=== PATIENT | female | born 1960 | race Caucasian/White ===

== ENCOUNTER 2018-10-05 05:18 | Inpatient (IN) | payer OTHER ==
[~2018-10-05] VITALS: Ht 182.9 cm; Wt 76.6 kg
[2018-10-05] VITALS (25 sets, daily range): BP systolic 94–129; BP diastolic 50–78; PULSE 63–81; RESP 16–24
[2018-10-05] MEDS ORDERED: oxyCODONE (CR) 10 MG TAB [oxyCONTIN] PO SCH (06:00)
[2018-10-05] MEDS ORDERED: TRANEXAMIC ACID 1GM/100ML(PMX) 100 ML PRE-OP X1 IVPB SCH (06:00)
[2018-10-05] MEDS ORDERED: TRANEXAMIC ACID 1GM/100ML(PMX) 100 ML INTRA-OP X1 IVPB SCH (06:00)
[2018-10-05] MEDS ORDERED: LACTATED RINGER'S 1,000 ML IV SCH (06:00)
[2018-10-05] MEDS ORDERED: ONDANSETRON 4 MG INJ IV SCH (06:00)
[2018-10-05] MEDS ORDERED: LANSOPRAZOLE 30 MG CAP PO SCH (06:00)
[2018-10-05] MEDS ORDERED: CEFAZOLIN 1 GM/50 ML (PMX) 50 ML IVPB SCH (06:00)
[2018-10-05] MEDS ORDERED: DEXAMETHASONE 4 MG/ML 1 ML INJ IV SCH (06:00)
[2018-10-05] MEDS ORDERED: ACETAMINOPHEN 500 MG TAB PO SCH (06:00)
[2018-10-05] MEDS ORDERED: ACETAMINOPHEN 1000MG/100ML IV 100 ML IVPB SCH (06:30)
--- NOTE | 2018-10-05 06:35 | HPN ---
Date/Time of Note Date/Time of Note DATE: 10/05/18 TIME: 06:35 Interval H&P Admission Note Pt. seen H&P reviewed: No system changes CORDELL KENYON MD October 05, 2018 06:35
[2018-10-05] MEDS ORDERED: BACITRACIN 50000 UNITS INJ ONE (06:57)
[2018-10-05] MEDS ORDERED: HIP PAIN COCKTAIL VANCO INJ SCH ×7 (07:00)
[2018-10-05] MEDS ORDERED: SULI150T PO (07:06)
[2018-10-05] MEDS ORDERED: POLYMYXIN B 500000 UNIT INJ ONE (07:11)
--- NOTE | 2018-10-05 07:19 | PREAC ---
Date/Time of Note Date/Time of Note DATE: 10/05/18 TIME: 07:17 Anesthesia Eval and Record Evaluation Time Pre-Procedure Interview DATE: 10/05/18 TIME: 07:17 Age 58 Sex female NPO: 8 hrs Preoperative diagnosis RIGHT HIP PRIMARY OSTEOARTHRITIS Planned procedure RIGHT ANTERIOR TOTAL HIP ARTHROPLASTY Past Medical History Past Medical History: Includes Recreational drugs: Marijuana Surgery & Anesthesia Issues No known issue Meds Anticoagulation: No Beta Yosi within 24 hr: No Reason Beta Yosi not given: Pt. not on B-Yosi Reported Medications Sulindac* (Sulindac*) 150 Mg Tablet, 75 MG PO BID, TAB 10/05/18 Current Medications Lactated Ringer's 1,000 ml @ 125 mls/hr Q8H IV Last administered on 10/05/18at 06:30; Admin Dose 125 MLS/HR; Start 10/05/18 at 06:00; Stop 10/05/18 at 13:59 Cefazolin Sodium 50 ml @ 100 mls/hr PRE-OP IVPB ; Start 10/05/18 at 06:00; Stop 10/05/18 at 19:00 Tranexamic Acid 100 ml @ 220 mls/hr PRE-OP IVPB ; Start 10/05/18 at 06:00; Stop 10/05/18 at 19:00 Tranexamic Acid 100 ml @ 200 mls/hr INTRA-OP IVPB ; Start 10/05/18 at 06:00; Stop 10/05/18 at 19:00 Oxycodone HCl (Oxycontin) 10 mg PRE-OP PO Last administered on 10/05/18at 06:29; Admin Dose 10 MG; Start 10/05/18 at 06:00; Stop 10/05/18 at 19:00 Acetaminophen (Tylenol Tab) 1,000 mg PRE-OP PO ; Start 10/05/18 at 06:00; Stop 10/05/18 at 19:00 Lansoprazole (Prevacid) 30 mg PRE-OP PO Last administered on 10/05/18at 06:28; Admin Dose 30 MG; Start 10/05/18 at 06:00; Stop 10/05/18 at 19:00 Ondansetron HCl (Zofran Inj) 4 mg PRE-OP IV Last administered on 10/05/18at 06:29; Admin Dose 4 MG; Start 10/05/18 at 06:00; Stop 10/05/18 at 19:00 Dexamethasone (Decadron) 8 mg PRE-OP IV ; Start 10/05/18 at 06:00; Stop 10/05/18 at 19:00 Ropivacaine/ Morphine Sulfate/ Clonidine HCl/ Epinephrine/ Ketorolac Tromethamine/ Vancomycin HCl/ Sodium Chloride INTRA-OP INJ ; Start 10/05/18 at 07:00 Acetaminophen 100 ml @ 400 mls/hr PRE-OP IVPB ; Start 10/05/18 at 06:30; Stop 10/05/18 at 12:00 Meds reviewed: Yes Allergies Coded Allergies: No Known Allergy (Unverified , 10/05/18) Allergies Reviewed: Yes Labs/Studies Labs Reviewed: Reviewed by anesthesiologist test: N/A Studies: ECG (NL), CXR (NAPD) Pre-procedure Exam Airway: Adequate mouth opening, Adequate thyromental dist Mallampati: Mallampati II Teeth: Normal Lung: Normal Heart: Normal ASA Physical Status ASA physical status: 2 Emergency: None Planned Anesthetic General/MAC: ETT Neuraxial: Spinal Planned Pain Management Parenteral pain med Pre-operative Attestations Prior to commencing anesthesia and surgery, the patient was re-evaluated, there was verification of: *The patient's identity *The results of appropriate recent lab work and preoperative vital signs *The above evaluation not changing prior to induction *Anesthetic plan, risk benefits, alternative and complications discussed with patient/family; questions answered; patient/family understands, accepts and wishes to proceed. Jaquan Cook M.D. October 05, 2018 07:19
[2018-10-05] MEDS ORDERED: MIDAZOLAM 1 MG/ML 2 ML INJ ONE (07:23)
[2018-10-05] MEDS ORDERED: DEXAMETHASONE 4 MG/ML 5 ML INJ ONE (07:23)
[2018-10-05] MEDS ORDERED: ONDANSETRON 4 MG INJ ONE (07:23)
[2018-10-05] MEDS ORDERED: CEFAZOLIN 1 GM INJ ONE (07:23)
[2018-10-05] MEDS ORDERED: PROPOFOL 20 ML ONE (07:23)
[2018-10-05] MEDS ORDERED: NEOSTIGMINE 3 MG/3 ML SYRINGE ONE (07:23)
[2018-10-05] MEDS ORDERED: ROCURONIUM 50 MG INJ ONE (07:23)
[2018-10-05] MEDS ORDERED: GLYCOPYRROLATE 0.4 MG INJ ONE (07:23)
[2018-10-05] MEDS ORDERED: FENTAnyl 50 MCG/ML VIAL ONE (07:23)
[2018-10-05] MEDS ORDERED: morphine SULFATE/PF (10 MG/10 ML) INJ ONE (07:24)
[2018-10-05] MEDS ORDERED: HYDROmorphONE 0.5 MG/0.5 ML SYG IV PRN ×2 (07:30)
[2018-10-05] MEDS ORDERED: hydrALAzine 20 MG INJ IV PRN (07:30)
[2018-10-05] MEDS ORDERED: DIPHENHYDRAMINE 50 MG INJ IV PRN ×2 (07:30)
[2018-10-05] MEDS ORDERED: FENTAnyl 50 MCG/ML VIAL IV PRN ×3 (07:30)
[2018-10-05] MEDS ORDERED: KETOROLAC 30 MG INJ IV PRN (07:30)
[2018-10-05] MEDS ORDERED: MIDAZOLAM 1 MG/ML 2 ML INJ IV PRN (07:30)
[2018-10-05] MEDS ORDERED: NALOXONE (0.4 MG/ML) INJ IV PRN ×2 (07:30→11:00)
[2018-10-05] MEDS ORDERED: LABETALOL HCL 20MG INJ IV PRN (07:30)
[2018-10-05] MEDS ORDERED: HYDROmorphONE 1 MG/5 ML IV SYRINGE IV PRN ×3 (07:30)
[2018-10-05] MEDS ORDERED: IPRATROPIUM (NEB) 0.5 MG/2.5 ML AMP HHN PRN (07:30)
[2018-10-05] MEDS ORDERED: ONDANSETRON 4 MG INJ IV PRN ×2 (07:30)
[2018-10-05] MEDS ORDERED: ALBUTEROL 0.083% (NEB) 2.5 MG/3 ML AMP HHN PRN (07:30)
[2018-10-05] MEDS ORDERED: ZOLPIDEM 5 MG TAB PO PRN (07:30)
[2018-10-05] MEDS ORDERED: TRIMETHOBENZAMIDE 100 MG/ML VIAL IM PRN ×2 (07:30)
[2018-10-05] MEDS ORDERED: OXYCODONE/ACETAMINOPHEN (5/325) TAB PO PRN ×2 (07:30)
[2018-10-05] MEDS ORDERED: EPHEDrine 25 MG/5 ML SYG IV PRN (07:30)
[2018-10-05] MEDS ORDERED: NALBUPHINE HCL (10 MG/1 ML) INJ IV PRN (07:30)
[2018-10-05] MEDS ORDERED: MEPERIDINE 25 MG INJ IV PRN (07:30)
[2018-10-05] MEDS ORDERED: POLYMYXIN B 500000 UNIT INJ IRR ONE (08:27)
--- NOTE | 2018-10-05 10:33 | SIPON ---
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
--- NOTE | 2018-10-05 10:42 | OPR ---
Date/Time of Note Date/Time of Note DATE: 10/05/18 TIME: 10:36 Operative Report Free Text/Dictation DATE OF OPERATION: October 05, 2018 PREOPERATIVE DIAGNOSIS: Right hip osteoarthritis. POSTOPERATIVE DIAGNOSIS: Right hip osteoarthritis. PROCEDURES PERFORMED: 1. Right total hip arthroplasty. CPT code 28250. 2. Computer assisted navigational procedure, CPT code 37721. 3. Interpretation of AP Pelvis x-ray. 4. Interpretation of right hip, 2 views. SURGEON: Cordell Turner. BROKE HANDLER: 1. Felice Carrillo. ANESTHESIOLOGIST: Dr. Cook ANESTHESIA: Spinal ESTIMATED BLOOD LOSS: 300 mL. COMPLICATIONS: None. SPECIMENS: Resected bone. DISPOSITION: PACU in stable condition. IMPLANT USED: A DePuy Corail size 15 stem, 36/+1.5 delta ceramic femoral head, 52 mm [place] Cup, 36 mm neutral liner COMPLICATIONS: Calcar Fracture DISPOSITION: To PACU in stable condition. INDICATION FOR PROCEDURE: This is an 58 year-old female with endstage osteoarthritis of the right hip who had failed nonoperative management. Risks, benefits, alternatives of surgical intervention were discussed with the patient and informed consent was obtained. The risks of surgery include but are not limited to infection, deep venous thrombosis, pulmonary embolism, leg length discrepancy, fracture, damage to neurovascular structures requiring repair, loosening of the prosthesis, wear of prosthesis, need for revision surgery, heart attack, stroke, need for blood transfusion, risks associated with anesthesia and even . DESCRIPTION OF PROCEDURE: The patient was met in the preoperative suite and the correct operative site was confirmed and marked. Patient was then brought into operating room. After induction of general anesthesia, the patient was placed in the supine position on the table. The right lower extremity was prepped and draped in the usual sterile fashion. Before starting, a timeout was taken to identify the correct operative site, the patients name and medical record number and to confirm the preoperative antibiotics consisting of 1 gram of IV Ancef, al karina with 1 gram of tranexamic acid were administered. At this point, an 8 cm incision was made approximately 2 cm lateral and 1 cm distal to the ASIS. The incision was carried down to the fascia. The fascia was then incised. Then, 2 Allis clamps were placed. The interval was then bluntly developed and the tensor fascia renee was then retracted laterally. The lateral circumflex vessels were identified and coagulated. The anterior capsule was then visualized and a capsulotomy was performed. At this point, markings were made for the napkin ring osteotomy of the femoral neck. Using the saw the initial osteotomy was then made and completed with the use of an osteotome. A Alejandrina was then used to remove the napkin ring and a corkscrew was then placed in the femoral head and the head was then removed. The head was sized to 50 mm. Sequential reaming was begun with a 45 mm reamer, going up to a 51 mm reamer. A trial 52 mm cup was then impacted and the radlink was then used to determine the appropriate anteve rsion and abduction of the cup. The cup was noted to be in approximately 44 degrees of inclination, and 22 degrees of anteversion. The trial was then removed. The appropriate size cup was then placed and again the radlink was used to determine the inclination and anteversion, and was noted be unchanged. The 36 mm liner was then impacted into place and the final acetabular x-rays were taken which again demonstrated the cup to be in appropriate abduction and anteversion. At this point, the femoral lift was then used and the leg was then placed in external rotation, extension, and adduction. Retractors were placed and the femoral releases were performed using a box osteotome followed by a canal finder. Sequential broaching was begun with a 8 broach going up to a size 12 broach. The calcar planar was used to plain the proximal femur. There was a fracture of the calcar with extension to the lesser trochanter. X-rays of the right hip including AP and lateral views were taken. The x-rays did not demonstrate fracture extension distal to the lesser trochanter. A cable proximal to the lesser trochanter the end fracture was reduced. This was confirmed using AP and lateral views. At this point the trial stem was removed, and broaching was continued going up to a size 15 broach. A trial 36/+1.5 head and neck were used. The hip was reduced. Leg lengths were noted to be equal. The hip was then reduced and taken through range of motion, noted to be stable in extension and external rotation of up to 110 degrees. AP x-rays of the pelvis and right hip, 2 view x-rays were taken. The x-rays demonstrated the prosthesis to be in the correct position with equal leg lengths. The trial components were then removed. Fracture was reduced with the cable. The appropriate sized components were then placed. The hip was again reduced with unchanged stability and equal leg lengths. The hip was again taken through range of motion and noted to be stable to extension and external rotation. The wound was then thoroughly irrigated. The capsule and the fascia were closed using #1 Stratafix. The subcutaneous tissue was closed using 2-0 Vicryl and the skin with 4-0 Monocryl in subcuticular fashion and Steri-Strips were applied. There were no complications. Patient was awakened and taken to postoperative care unit in stable condition. Prior to transfer, the patient was noted to have equal leg lengths and a palpable dorsalis pedis pulse. POSTOPERATIVE CARE: Patient will be weightbearing as tolerated. Patient will work with physical therapy, and receive multimodal pain management.. Patient will receive two additional doses of IV Ancef along with aspirin 81 mg p.o. b.i.d. for 6 weeks. Patient will have SCDs while in the hospital. Upon discharge, patient will follow up in my office within 2 weeks postoperatively. CORDELL TURNER MD October 05, 2018 10:42
[2018-10-05] MEDS ORDERED: NACL 0.9% 3 ML SYG IV SCH (11:00)
[2018-10-05] MEDS ORDERED: MAGNESIUM HYDROXIDE 30ML CUP PO PRN (11:00)
[2018-10-05] MEDS ORDERED: BISACODYL 10 MG SUPP PR PRN (11:00)
[2018-10-05] MEDS ORDERED: SENNA/DOCUSATE NA (8.6MG/50MG) TAB PO PRN (11:00)
[2018-10-05] MEDS ORDERED: KETOROLAC 15 MG INJ IV PRN (11:00)
[2018-10-05] MEDS ORDERED: ASPIRIN 81 MG TAB PO ONE (11:00)
[2018-10-05] MEDS ORDERED: NA PHOSPHATE/BIPHOS 133 ML ENEMA PR PRN (11:00)
[2018-10-05] MEDS ORDERED: DOCUSATE SODIUM 100 MG CAP PO ONE (11:00)
--- NOTE | 2018-10-05 11:03 | PAC ---
Date/Time of Note Date/Time of Note DATE: 10/05/18 TIME: 11:03 Post-Anesthesia Notes Post-Anesthesia Note Last documented vital signs Vital Signs Date Temp Pulse Resp B/P (MAP) Pulse Ox O2 O2 Flow FiO2 Time Delivery Rate 10/05/18 68 16 120/71 97 Nasal 10:30 (87) Cannula 10/05/18 98.0 10:27 Activity: WNL Respiratory function: WNL Cardiovascular function: WNL Mental status: Baseline Pain reasonably controlled: Yes Hydration appropriate: Yes Nausea/Vomiting absent: Yes Jaquan Cook M.D. October 05, 2018 11:03
[2018-10-05] MEDS: CEFAZOLIN 2 GM/50 ML (PMX) 50 ML IVPB SCH ×2 (11:10→18:34)
[2018-10-05] MEDS: ONDANSETRON 4 MG INJ IV SCH ×3 (11:30→22:27)
--- NOTE | 2018-10-05 14:12 | CONS ---
Assessment/Plan Assessment/Plan Hospital Course (Demo Recall) SUBJECTIVE: Lying in bed comfortably. No acute distress. OBJECTIVE: Vital signs-see below PHYSICAL EXAM: Constitutional: Adequately built,not in acute distress. HEENT: Head atraumatic and normocephalic. Eyes: Extraocular muscles intact. Anicteric sclerae. Pupils equal bilaterally, reactive to light. NECK: Supple without lymph node. CHEST: Clear and good breath sounds equally. No wheezing. No rhonchi. HEART: S1, S2. Regular rate and rhythm. ABDOMEN: Soft/non tender with no rebound tenderness. Bowel sounds were present. EXTREMITIES: +Swelling agustín hands. No cyanosis, clubbing .Rt hip dressing c/d/i NEUROLOGIC: Alert and oriented x3. No focal deficit. No sensory deficit. PSYCHOSOCIAL: No signs of depression. INTEGUMENTARY: No open wounds. ASSESSMENT AND PLAN:58 yo F w/R hip OA brought in for R total hip arthroplasty.. Right hip osteoarthritis, status post right total hip arthroplasty 10/05/2018 -Postoperative DVT prophylaxis, weightbearing, pain control per orthopedic team. DVT prophylaxis: Per orthopedic team. Recommended aspirin per orthopedics. Thank you for allowing us to partake in the care of this pleasant lady. We will continue seeing patient along with you. Approximately 60-minute was spent on this consultation. Patient was seen in collaboration with Consultation Date/Type/Reason Admit Date/Time October 05, 2018 at 05:18 Type of Consult Internal medicine Reason for Consultation Postoperative: Medical management Requesting Provider: CORDELL KENYON MD Date/Time of Note DATE: 10/05/18 TIME: 14:00 Hx of Present Illness This is a 58-year-old female with a history of right hip osteoarthritis, otherwise healthy, brought in for right total hip arthroplasty. Patient underwent right total hip arthroplasty on 01/05/2019. Postoperatively, hospitalist medicine was consulted for co-medical management. Patient denied chest pain, palpitation, shortness of breath, headache, nausea, vomiting, abdominal pain, loss of consciousness, dizziness, speech difficulties, vision changes, fever, chills or other constitutional symptoms. Right hip surgical site dressing intact with no oozing. 12 point review of system was assessed and is negative other than what is mentioned in the HPI Past Medical History See [facility] Home Meds Reported Medications Sulindac* (Sulindac*) 150 Mg Tablet, 75 MG PO BID, TAB 10/05/18 Medications Current Medications Cefazolin Sodium 50 ml @ 100 mls/hr PRE-OP IVPB ; Start 10/05/18 at 06:00; Stop 10/05/18 at 19:00 Tranexamic Acid 100 ml @ 220 mls/hr PRE-OP IVPB ; Start 10/05/18 at 06:00; Stop 10/05/18 at 19:00 Tranexamic Acid 100 ml @ 200 mls/hr INTRA-OP IVPB ; Start 10/05/18 at 06:00; Stop 10/05/18 at 19:00 Oxycodone HCl (Oxycontin) 10 mg PRE-OP PO Last administered on 10/05/18at 06:29; Admin Dose 10 MG; Start 10/05/18 at 06:00; Stop 10/05/18 at 19:00 Acetaminophen (Tylenol Tab) 1,000 mg PRE-OP PO ; Start 10/05/18 at 06:00; Stop 10/05/18 at 19:00 Lansoprazole (Prevacid) 30 mg PRE-OP PO Last administered on 10/05/18at 06:28; Admin Dose 30 MG; Start 10/05/18 at 06:00; Stop 10/05/18 at 19:00 Ondansetron HCl (Zofran Inj) 4 mg PRE-OP IV Last administered on 10/05/18at 06:29; Admin Dose 4 MG; Start 10/05/18 at 06:00; Stop 10/05/18 at 19:00 Dexamethasone (Decadron) 8 mg PRE-OP IV ; Start 10/05/18 at 06:00; Stop 10/05/18 at 19:00 Ropivacaine/ Morphine Sulfate/ Clonidine HCl/ Epinephrine/ Ketorolac Trom ethamine/ Vancomycin HCl/ Sodium Chloride INTRA-OP INJ ; Start 10/05/18 at 07:00 Hydromorphone HCl (Dilaudid) 0.2 mg PACU PRN IV MILD PAIN 1-3; Start 10/05/18 at 07:30; Stop 10/05/18 at 17:00 Hydromorphone HCl (Dilaudid) 0.4 mg PACU PRN IV MOD PAIN 4-6; Start 10/05/18 at 07:30; Stop 10/05/18 at 17:00 Hydromorphone HCl (Dilaudid) 0.6 mg PACU PRN IV SEVERE PAIN 7-10; Start 10/05/18 at 07:30; Stop 10/05/18 at 17:00 Fentanyl (Sublimaze) 25 mcg PACU ORDER PRN IV MILD PAIN 1-3; Start 10/05/18 at 07:30; Stop 10/05/18 at 17:00 Fentanyl (Sublimaze) 50 mcg PACU ORDER PRN IV MOD PAIN 4-6; Start 10/05/18 at 07:30; Stop 10/05/18 at 17:00 Fentanyl (Sublimaze) 75 mcg PACU ORDER PRN IV SEVERE PAIN 7-10; Start 10/05/18 at 07:30; Stop 10/05/18 at 17:00 Oxycodone/ Acetaminophen (Percocet (5/ 325)) 1 tab PACU ORDER PRN PO .PAIN 1-5; Start 10/05/18 at 07:30; Stop 10/05/18 at 17:00 Oxycodone/ Acetaminophen (Percocet (5/ 325)) 2 tab PACU ORDER PRN PO .PAIN 6-10; Start 10/05/18 at 07:30; Stop 10/05/18 at 17:00 Ondansetron HCl (Zofran Inj) 4 mg PACU ORDER PRN IV NAUSEA/VOMITING; Start 10/05/18 at 07:30; Stop 10/05/18 at 17:00 Trimethobenzamide HCl (Tigan) 200 mg PACU ORDER PRN IM NAUSEA/VOMITING; Start 10/05/18 at 07:30; Stop 10/05/18 at 17:00 Labetalol HCl (Labetalol) 5 mg PACU ORDER PRN IV HIGH BLOOD PRESSURE; Start 10/05/18 at 07:30; Stop 10/05/18 at 17:00 Hydralazine HCl (Apresoline) 5 mg PACU ORDER PRN IV HIGH BLOOD PRESSURE; Start 10/05/18 at 07:30; Stop 10/05/18 at 17:00 Ephedrine Sulfate 5 mg PACU ORDER PRN IV BLOOD PRESSURE SUPPORT; Start 10/05/18 at 07:30; Stop 10/05/18 at 17:00 Albuterol (Proventil 0.083% (Neb)) 2.5 mg PACU ORDER PRN HHN .WHEEZING; Start 10/05/18 at 07:30; Stop 10/05/18 at 17:00 Ipratropium [place] (Atrovent 0.02% (Neb)) 0.5 mg PACU ORDER PRN HHN .WHEEZING; Start 10/05/18 at 07:30; Stop 10/05/18 at 17:00 Meperidine HCl (Demerol) 25 mg PACU ORDER PRN IV .RIGORS; Start 10/05/18 at 07:3 0; Stop 10/05/18 at 17:00 Diphenhydramine HCl (Benadryl) 25 mg PACU ORDER PRN IV .PRURITUS Last administered on 10/05/18at 11:10; Admin Dose 25 MG; Start 10/05/18 at 07:30; Stop 10/05/18 at 17:00 Midazolam HCl (Versed) 0.5 mg PACU ORDER PRN IV .ANXIETY; Start 10/05/18 at 07:30; Stop 10/05/18 at 17:00 Hydromorphone HCl (Dilaudid) 0.2 mg Q2H PRN IV .PAIN 1-5; Start 10/05/18 at 07:30; Stop 10/06/18 at 07:30 Hydromorphone HCl (Dilaudid) 0.4 mg Q2H PRN IV .PAIN 6-10; Start 10/05/18 at 07:30; Stop 10/06/18 at 07:30 Ketorolac Tromethamine (Toradol) 30 mg Q6H PRN IV .PAIN 6-10; Start 10/05/18 at 07:30; Stop 10/06/18 at 07:30 Diphenhydramine HCl (Benadryl) 25 mg Q4H PRN IV .PRURITUS; Start 10/05/18 at 07:30; Stop 10/06/18 at 07:30 Nalbuphine HCl (Nubain) 10 mg Q4H PRN IV .PRURITUS; Start 10/05/18 at 07:30; Stop 10/06/18 at 07:30 Ondansetron HCl (Zofran Inj) 4 mg Q6H PRN IV .NAUSEA/VOMITING; Start 10/05/18 at 07:30; Stop 10/06/18 at 07:30 Trimethobenzamide HCl (Tigan) 200 mg Q6H PRN IM .NAUSEA/VOMITING; Start at 07:30; Stop 10/06/18 at 07:30 Zolpidem Tartrate (Ambien) 5 mg HS MAY REPEAT X 1 PRN PO .INSOMNIA; Start 10/05/18 at 07:30; Stop 10/06/18 at 07:30 Naloxone HCl (Narcan) 0.2 mg Q2M PRN IV .RESP RATE; Start 10/05/18 at 07:30; Stop 10/06/18 at 07:30 Miscellaneous Information (* Miscellaneous Pharmacy Order) DURAMORPH: 0.2 MG SPI... GIVEN NEURAXIAL XX ; Start 10/05/18 at 07:30 Oxycodone HCl (Roxicodone) 5 mg Q4H PRN PO .PAIN; Start 10/05/18 at 11:00 Ondansetron HCl (Zofran Inj) 4 mg Q6H IV Last administered on 10/05/18at 11:30; Admin Dose 4 MG; Start 10/05/18 at 11:00; Stop 10/06/18 at 05:01 Cefazolin Sodium/ Dextrose 50 ml @ 100 mls/hr Q8H IVPB Last administered on 10/05/18at 11:10; Admin Dose 100 MLS/HR; Start 10/05/18 at 11:00; Stop 10/06/18 at 03:29 Celecoxib (Celebrex) 100 mg BID PO ; Start 10/06/18 at 09:00 Gabapentin (Neurontin) 100 mg TID PO ; Start 10/05/18 at 13:00 Pantoprazole (Protonix Tab) 40 mg DAILY@06 PO ; Start 10/06/18 at 06:00 Docusate Sodium (Colace) 200 mg BID PO ; Start 10/06/18 at 09:00; Stop 10/08/18 at 21:01 Simethicone (Mylicon) 80 mg TID PRN PO .GAS; Start 10/05/18 at 11:00 Senna/Docusate Sodium (Senokot-S) 2 tab BID PRN PO .CONSTIPATION; Start 10/05/18 at 11:00 Magnesium Hydroxide (Milk Of Mag) 30 ml HS PRN PO .CONSTIPATION; Start 10/05/18 at 11:00 Bisacodyl (Dulcolax Supp) 10 mg DAILY PRN [place] .CONSTIPATION; Start 10/05/18 at 11:00 Sodium Biphosphate/ Sodium Phosphate (Fleet Enema) 133 ml DAILY PRN [place] .CONSTIPATION; Start 10/05/18 at 11:00 Ketorolac Tromethamine (Toradol) 15 mg Q6H PRN IV .PAIN; Start 10/05/18 at 11:00 Naloxone HCl (Narcan) 0.2 mg Q2M PRN IV .RESP RATE; Start 10/05/18 at 11:00 IV Flush (NS 3 ml) 3 ml per protocol IV ; Start 10/05/18 at 11:00 Allergies: Coded Allergies: No Known Allergy (Unverified , 10/05/18) Past Surgical History See HPI Social History Former smoker. No alcohol/substance abuse history. Smoking Status: Former smoker Exam/Review of Systems Exam Vitals Vital Signs Date Temp Pulse Resp B/P (MAP) Pulse Ox O2 O2 Flow FiO2 Time Delivery Rate 10/05/18 Nasal 2.0 11:59 Cannula 10/05/18 98.2 66 22 123/75 100 11:20 (91) Medications Medication Current Medications Cefazolin Sodium 50 ml @ 100 mls/hr PRE-OP IVPB ; Start 10/05/18 at 06:00; Stop 10/05/18 at 19:00 Tranexamic Acid 100 ml @ 220 mls/hr PRE-OP IVPB ; Start 10/05/18 at 06:00; Stop 10/05/18 at 19:00 Tranexamic Acid 100 ml @ 200 mls/hr INTRA-OP IVPB ; Start 10/05/18 at 06:00; Stop 10/05/18 at 19:00 Oxycodone HCl (Oxycontin) 10 mg PRE-OP PO Last administered on 10/05/18at 06:29; Admin Dose 10 MG; Start 10/05/18 at 06:00; Stop 10/05/18 at 19:00 Acetaminophen (Tylenol Tab) 1,000 mg PRE-OP PO ; Start 10/05/18 at 06:00; Stop 10/05/18 at 19:00 Lansoprazole (Prevacid) 30 mg PRE-OP PO Last administered on 10/05/18at 06:28; Admin Dose 30 MG; Start 10/05/18 at 06:00; Stop 10/05/18 at 19:00 Ondansetron HCl (Zofran Inj) 4 mg PRE-OP IV Last administered on 10/05/18at 06:29; Admin Dose 4 MG; Start 10/05/18 at 06:00; Stop 10/05/18 at 19:00 Dexamethasone (Decadron) 8 mg PRE-OP IV ; Start 10/05/18 at 06:00; Stop 10/05/18 at 19:00 Ropivacaine/ Morphine Sulfate/ Clonidine HCl/ Epinephrine/ Ketorolac Tromethamine/ Vancomycin HCl/ Sodium Chloride INTRA-OP INJ ; Start 10/05/18 at 07:00 Hydromorphone HCl (Dilaudid) 0.2 mg PACU PRN IV MILD PAIN 1-3; Start 10/05/18 at 07:30; Stop 10/05/18 at 17:00 Hydromorphone HCl (Dilaudid) 0.4 mg PACU PRN IV MOD PAIN 4-6; Start 10/05/18 at 07:30; Stop 10/05/18 at 17:00 Hydromorphone HCl (Dilaudid) 0.6 mg PACU PRN IV SEVERE PAIN 7-10; Start 10/05/18 at 07:30; Stop 10/05/18 at 17:00 Fentanyl (Sublimaze) 25 mcg PACU ORDER PRN IV MILD PAIN 1-3; Start 10/05/18 at 07:30; Stop 10/05/18 at 17:00 Fentanyl (Sublimaze) 50 mcg PACU ORDER PRN IV MOD PAIN 4-6; Start 10/05/18 at 07:30; Stop 10/05/18 at 17:00 Fentanyl (Sublimaze) 75 mcg PACU ORDER PRN IV SEVERE PAIN 7-10; Start 10/05/18 at 07:30; Stop 10/05/18 at 17:00 Oxycodone/ Acetaminophen (Percocet (5/ 325)) 1 tab PACU ORDER PRN PO .PAIN 1-5; Start 10/05/18 at 07:30; Stop 10/05/18 at 17:00 Oxycodone/ Acetaminophen (Percocet (5/ 325)) 2 tab PACU ORDER PRN PO .PAIN 6-10; Start 10/05/18 at 07:30; Stop 10/05/18 at 17:00 Ondansetron HCl (Zofran Inj) 4 mg PACU ORDER PRN IV NAUSEA/VOMITING; Start 10/05 at 07:30; Stop 10/05/18 at 17:00 Trimethobenzamide HCl (Tigan) 200 mg PACU ORDER PRN IM NAUSEA/VOMITING; Start 10/05/18 at 07:30; Stop 10/05/18 at 17:00 Labetalol HCl (Labetalol) 5 mg PACU ORDER PRN IV HIGH BLOOD PRESSURE; Start 10/05/18 at 07:30; Stop 10/05/18 at 17:00 Hydralazine HCl (Apresoline) 5 mg PACU ORDER PRN IV HIGH BLOOD PRESSURE; Start 10/05/18 at 07:30; Stop 10/05/18 at 17:00 Ephedrine Sulfate 5 mg PACU ORDER PRN IV BLOOD PRESSURE SUPPORT; Start 10/05/18 at 07:30; Stop 10/05/18 at 17:00 Albuterol (Proventil 0.083% (Neb)) 2.5 mg PACU ORDER PRN HHN .WHEEZING; Start 10/05/18 at 07:30; Stop 10/05/18 at 17:00 Ipratropium [place] (Atrovent 0.02% (Neb)) 0.5 mg PACU ORDER PRN HHN .WHEEZING; Start 10/05/18 at 07:30; Stop 10/05/18 at 17:00 Meperidine HCl (Demerol) 25 mg PACU ORDER PRN IV .RIGORS; Start 10/05/18 at 07:30; Stop 10/05/18 at 17:00 Diphenhydramine HCl (Benadryl) 25 mg PACU ORDER PRN IV .PRURITUS Last administered on 10/05/18at 11:10; Admin Dose 25 MG; Start 10/05/18 at 07:30; Stop 10/05/18 at 17:00 Midazolam HCl (Versed) 0.5 mg PACU ORDER PRN IV .ANXIETY; Start 10/05/18 at 07:30; Stop 10/05/18 at 17:00 Hydromorphone HCl (Dilaudid) 0.2 mg Q2H PRN IV .PAIN 1-5; Start 10/05/18 at 07:30; Stop 10/06/18 at 07:30 Hydromorphone HCl (Dilaudid) 0.4 mg Q2H PRN IV .PAIN 6-10; Start 10/05/18 at 07:30; Stop 10/06/18 at 07:30 Ketorolac Tromethamine (Toradol) 30 mg Q6H PRN IV .PAIN 6-10; Start 10/05/18 at 07:30; Stop 10/06/18 at 07:30 Diphenhydramine HCl (Benadryl) 25 mg Q4H PRN IV .PRURITUS; Start 10/05/18 at 07:30; Stop 10/06/18 at 07:30 Nalbuphine HCl (Nubain) 10 mg Q4H PRN IV .PRURITUS; Start 10/05/18 at 07:30; Stop 10/06/18 at 07:30 Ondansetron HCl (Zofran Inj) 4 mg Q6H PRN IV .NAUSEA/VOMITING; Start 10/05/18 at 07:30; Stop 10/06/18 at 07:30 Trimethobenzamide HCl (Tigan) 200 mg Q6H PRN IM .NAUSEA/VOMITING; Start 10/05/18 at 07:30; Stop 10/06/18 at 07:30 Zolpidem Tartrate (Ambien) 5 mg HS MAY REPEAT X 1 PRN PO .INSOMNIA; Start 10/05/18 at 07:30; Stop 10/06/18 at 07:30 Naloxone HCl (Narcan) 0.2 mg Q2M PRN IV .RESP RATE; Start 10/05/18 at 07:30; Stop 10/06/18 at 07:30 Miscellaneous Information (* Miscellaneous Pharmacy Order) DURAMORPH: 0.2 MG SPI... GIVEN NEURAXIAL XX ; Start 10/05/18 at 07:30 Oxycodone HCl (Roxicodone) 5 mg Q4H PRN PO .PAIN; Start 10/05/18 at 11:00 Ondansetron HCl (Zofran Inj) 4 mg Q6H IV Last administered on 10/05/18at 11:30; Admin Dose 4 MG; Start 10/05/18 at 11:00; Stop 10/06/18 at 05:01 Cefazolin Sodium/ Dextrose 50 ml @ 100 mls/hr Q8H IVPB Last administered on 10/05/18at 11:10; Admin Dose 100 MLS/HR; Start 10/05/18 at 11:00; Stop 10/06/18 at 03:29 Celecoxib (Celebrex) 100 mg BID PO ; Start 10/06/18 at 09:00 Gabapentin (Neurontin) 100 mg TID PO ; Start 10/05/18 at 13:00 Pantoprazole (Protonix Tab) 40 mg DAILY@06 PO ; Start 10/06/18 at 06:00 Docusate Sodium (Colace) 200 mg BID PO ; Start 10/06/18 at 09:00; Stop 10/08/18 at 21:01 Simethicone (Mylicon) 80 mg TID PRN PO .GAS; Start 10/05/18 at 11:00 Senna/Docusate Sodium (Senokot-S) 2 tab BID PRN PO .CONSTIPATION; Start 10/05/18 at 11:00 Magnesium Hydroxide (Milk Of Mag) 30 ml HS PRN PO .CONSTIPATION; Start 10/05/18 at 11:00 Bisacodyl (Dulcolax Supp) 10 mg DAILY PRN [place] .CONSTIPATION; Start 10/05/18 at 11:00 Sodium Biphosphate/ Sodium Phosphate (Fleet Enema) 133 ml DAILY PRN IA .CO NSTIPATION; Start 10/05/18 at 11:00 Ketorolac Tromethamine (Toradol) 15 mg Q6H PRN IV .PAIN; Start 10/05/18 at 11:00 Naloxone HCl (Narcan) 0.2 mg Q2M PRN IV .RESP RATE; Start 10/05/18 at 11:00 IV Flush (NS 3 ml) 3 ml per protocol IV ; Start 10/05/18 at 11:00 RAFAT CURTIS NP October 05, 2018 14:11
[2018-10-05] MEDS: GABAPENTIN 100 MG CAP PO SCH ×2 (14:22→21:37)
[2018-10-05] MEDS: ASPIRIN 81 MG TAB PO SCH (21:37)
[2018-10-06 00:08] VITALS: BP 98/52; PULSE 64; RESP 18
[2018-10-06] MEDS: CEFAZOLIN 2 GM/50 ML (PMX) 50 ML IVPB SCH (02:52)
[2018-10-06] MEDS: ONDANSETRON 4 MG INJ IV SCH (04:21)
[2018-10-06] MEDS ORDERED: PANTOPRAZOLE (EC) 40 MG TAB PO SCH (06:00)
[2018-10-06 07:24] VITALS: BP 99/55; PULSE 74; RESP 18
[2018-10-06] MEDS ORDERED: CELECOXIB 100 MG CAP PO SCH (09:00)
[2018-10-06] MEDS ORDERED: DOCUSATE SODIUM 100 MG CAP PO SCH (09:00)
[2018-10-06] MEDS: GABAPENTIN 100 MG CAP PO SCH ×2 (09:08→13:04)
[2018-10-06] MEDS: oxyCODONE 5 MG TAB PO PRN ×3 (09:08→16:37)
[2018-10-06] MEDS: ASPIRIN 81 MG TAB PO SCH (09:13)
--- NOTE | 2018-10-06 11:45 | CONS ---
Assessment/Plan Assessment/Plan Hospital Course (Demo Recall) SUBJECTIVE: No acute distress.pod#1 OBJECTIVE: Vital signs-see below PHYSICAL EXAM: Constitutional: Adequately built,not in acute distress. HEENT: Head atraumatic and normocephalic. Eyes: Extraocular muscles intact. Anicteric sclerae. Pupils equal bilaterally, reactive to light. NECK: Supple without lymph node. CHEST: Clear and good breath sounds equally. No wheezing. No rhonchi. HEART: S1, S2. Regular rate and rhythm. ABDOMEN: Soft/non tender with no rebound tenderness. Bowel sounds were present. EXTREMITIES: +Swelling agustín hands. No cyanosis, clubbing .Rt hip dressing c/d/i NEUROLOGIC: Alert and oriented x3. No focal deficit. No sensory deficit. PSYCHOSOCIAL: No signs of depression. INTEGUMENTARY: No open wounds. ASSESSMENT AND PLAN:58 yo F w/R hip OA brought in for R total hip arthroplasty.. Right hip osteoarthritis, status post right total hip arthroplasty 10/05/2018 -Postoperative DVT prophylaxis, weightbearing, pain control per orthopedic team. DVT prophylaxis: Recommended aspirin bid per orthopedics. Remains medically stable.Disposition per ortho/PT tem Patient was seen in collaboration with Consultation Date/Type/Reason Admit Date/Time October 05, 2018 at 10:56 Initial Consult Date Type of Consult Internal medicine Requesting Provider: CORDELL KENYON MD Date/Time of Note DATE: 10/06/18 TIME: 11:43 Exam/Review of Systems Exam Vitals Vital Signs Date Temp Pulse Resp B/P (MAP) Pulse Ox O2 O2 Flow FiO2 Time Delivery Rate 10/06/18 98.7 74 18 99/55 (70) 95 07:24 10/05/18 Room Air 14:00 10/05/18 2.0 12:45 Intake and Output 10/05/18 10/05/18 10/06/18 1515:00 23:00 07:00 IntakeIntake Total 3050 ml 2330 ml 450 ml OutputOutput Total 200 ml 1800 ml BalanceBalance 2850 ml 2330 ml -1350 ml Results Result Diagram: 10/06/18 0436 10/06/18 0436 Results 24hrs Laboratory Tests Test 10/06/18 04:36 10/06/18 04:37 10/06/18 07:58 White Blood Count 7.6 Red Blood Count 3.08 L Hemoglobin 9.1 L Hematocrit 27.5 L Mean Corpuscular Volume 89.3 Mean Corpuscular Hemoglobin 29.5 Mean Corpuscular 33.1 Hemoglobin Concent Red Cell Distribution Width 13.4 Platelet Count 200 Mean Platelet Volume 9.7 Immature Granulocytes % 0.300 Neutrophils % 77.8 H Lymphocytes % 13.3 L Monocytes % 8.6 Eosinophils % 0.0 Basophils % 0.0 Nucleated Red Blood Cells % 0.0 Immature Granulocytes # 0.020 Neutrophils # 5.9 Lymphocytes # 1.0 Monocytes # 0.7 Eosinophils # 0.0 Basophils # 0.0 Nucleated Red Blood Cells # 0.0 Sodium Level 136 Potassium Level 4.3 Chloride Level 104 Carbon Dioxide Level 30 Anion Gap 2 L Blood Urea Nitrogen 25 H Creatinine 0.86 Est Glomerular Filtrat > 60 Rate mL/min Glucose Level 115 Calcium Level 8.1 L Prothrombin Time 13.8 Prothrombin Time Ratio 1.1 INR International 1.05 Normalized Ratio Lab Scanned Report REFERENCE LAB Medications Medication Current Medications Ropivacaine/ Morphine Sulfate/ Clonidine HCl/ Epinephrine/ Ketorolac Tromethamine/ Vancomycin HCl/ Sodium Chloride INTRA-OP INJ ; Start 10/05/18 at 07:00 Miscellaneous Information (* Miscellaneous Pharmacy Order) DURAMORPH: 0.2 MG SPI... GIVEN NEURAXIAL XX ; Start 10/05/18 at 07:30 Oxycodone HCl (Roxicodone) 5 mg Q4H PRN PO .PAIN Last administered on 10/06/18 09:08; Admin Dose 5 MG; Start 10/05/18 at 11:00 Celecoxib (Celebrex) 100 mg BID PO Last administered on 10/06/18 09:07; Admin Dose 100 MG; Start 10/06/18 at 09:00 Gabapentin (Neurontin) 100 mg TID PO Last administered on 10/06/18 09:08; Adm in Dose 100 MG; Start 10/05/18 at 13:00 Pantoprazole (Protonix Tab) 40 mg DAILY@06 PO Last administered on 10/06/18 06:14; Admin Dose 40 MG; Start 10/06/18 at 06:00 Docusate Sodium (Colace) 200 mg BID PO Last administered on 10/06/18at 09:07; Admin Dose 200 MG; Start 10/06/18 at 09:00; Stop 10/08/18 at 21:01 Simethicone (Mylicon) 80 mg TID PRN PO .GAS; Start 10/05/18 at 11:00 Senna/Docusate Sodium (Senokot-S) 2 tab BID PRN PO .CONSTIPATION; Start 10/05/18 at 11:00 Magnesium Hydroxide (Milk Of Mag) 30 ml HS PRN PO .CONSTIPATION; Start 10/05/18 at 11:00 Bisacodyl (Dulcolax Supp) 10 mg DAILY PRN [place] .CONSTIPATION; Start 10/05/18 at 11:00 Sodium Biphosphate/ Sodium Phosphate (Fleet Enema) 133 ml DAILY PRN [place] .CONSTIPATION; Start 10/05/18 at 11:00 Ketorolac Tromethamine (Toradol) 15 mg Q6H PRN IV .PAIN Last administered on 10/06/18at 11:26; Admin Dose 15 MG; Start 10/05/18 at 11:00 Naloxone HCl (Narcan) 0.2 mg Q2M PRN IV .RESP RATE; Start 10/05/18 at 11:00 IV Flush (NS 3 ml) 3 ml per protocol IV ; Start 10/05/18 at 11:00 Aspirin (Aspirin) 81 mg BID PO Last administered on 10/06/18at 09:13; Admin Dose 81 MG; Start 10/05/18 at 21:00 RAFAT CURTIS NP October 06, 2018 11:45
[2018-10-06 15:17] VITALS: BP 104/56; PULSE 69; RESP 18
== END 2018-10-06 16:40 | disposition home health service (06) | DRG 470 ==
LOC: INTOOBSV 05:18 → REC 05:18 → OBSVTOIN 10:56 → MS1 11:35
PROVIDERS: ADMIT Orthopaedic Surgery Adult Reconstructive Orthopaedic Surgery; ATTEND Orthopaedic Surgery Adult Reconstructive Orthopaedic Surgery
PROC: 0SR904A Replacement of Right Hip Joint with Ceramic on Polyethylene Synthetic Substitute, Uncemented, Open Approach (ICD-10-PCS; principal; 2018-10-05 07:30)
DX: M16.11 Unilateral primary osteoarthritis, right hip (principal)
CPT/HCPCS: 72170; 73500; 73530; 80048; 85025; 85610; 86850; 86900; 86901; 88304; 88311; 97116; 97162; 97167; 97530; 97535; 99217; C1776; G0378; J0131; J0171; J0690; J1100; J1200; J1885; J2250; J2274; J2405; J2710; J2795; J3010; J3370; J7120